=== PATIENT | female | born 1985 | race Caucasian/White ===

== ENCOUNTER 2023-04-02 06:21 | Emergency (ER) | payer BC ==
[2023-04-02 08:29] LABS: Hematocrit 40.3 % (36.0-45.0); Lymphocytes % 27.9 % (15.3-44.8); MCV 83.3 fL (80-100); MPV 8.4 fL (7.6-11.3); RBC Red Blood Cell Count 4.84 M/uL (3.86-4.86)
[2023-04-02 09:00] LABS: ALT/SGPT 31 U/L (13-56); AST/SGOT 15 U/L (15-37); Albumin 4.4 g/dL (3.4-5.0); Alkaline Phosphatase 79 U/L (45-117); BUN Blood Urea Nitrogen 9 mg/dL (7-18); Bicarbonate 26 mEq/L (21-32); Bilirubin Total 0.3 mg/dL (0.2-1.0); Glomerular Filtration Rate 98 ml/min (=/>90); Glucose Level 103 mg/dL (74-106); Lipase 51 U/L (13-75); Magnesium 1.8 mg/dL (1.6-2.4); NT PRO-BNP 15 pg/mL (<125); Potassium 3.5 mEq/L (3.5-5.1); Protein, Total 8.2 g/dL (6.4-8.2); Sodium Level 136 mEq/L (136-145); Troponin High Sensitivity 3.2 pg/mL (<58.9)
[2023-04-02 09:02] LABS: Bilirubin Direct < 0.1 mg/dL (0-0.2); Bilirubin Indirect, Calculated ND mg/dL (0.2-0.8)
--- NOTE | 2023-04-02 09:11 | RAD REPORT ---
EXAM DESCRIPTION: Lynsey Single View04/02/2023 7:55 am CLINICAL HISTORY: Abdominal pain COMPARISON: none FINDINGS: The lungs appear clear of acute infiltrate. The heart is normal size IMPRESSION: No acute abnormalities displayed
--- NOTE | 2023-04-02 09:11 | RAD REPORT ---
EXAM DESCRIPTION: CT - Abdomen Pelvis W Contrast - 04/02/2023 8:50 am CLINICAL HISTORY: Abdominal pain/GI bleed COMPARISON: none. TECHNIQUE: Computed axial tomography of the abdomen pelvis was obtained. 100 cc Isovue-300 was admin istered intravenously. Oral contrast was not requested which limits evaluation of bowel and appendix All CT scans are performed using dose optimization technique as appropriate and may include automated exposure control or mA/KV adjustment according to patient size. FINDINGS: The liver, spleen, pancreas, adrenal and kidneys appear unremarkable. There is no evidence of diverticulitis. No colitis Normal appendix. No adnexal mass. Hysterectomy Mild bladder distention IMPRESSION: No acute abnormality is displayed. Mild bladder distention
[2023-04-02 09:13] LABS: Protime INR 1.04
--- NOTE | 2023-04-02 09:52 | ER ---
Nurse's Notes [facility] Name: Melo Gonzales Age: 37 yrs Sex: Female : 1985 Arrival Date: 04/02/2023 Time: 06:21 Bed 8 Private MD: Diagnosis: Abdominal tenderness;Left sided colitis with rectal bleeding;GI Bleed/ Gastrointestinal hemorrhage, unspecified Presentation: 04/02 07:21 Chief complaint: Patient states: I've been having rectal bleeding all night, has iw pressure and bloating and cramping , has bright red blood when she goes to the bathroom , no hx of GI bleed. Coronavirus screen: At this time, the client does not indicate any symptoms associated with coronavirus-19. Ebola Screen: Patient negative for fever greater than or equal to 101.5 degrees Fahrenheit, and additional compatible Ebola Virus Disease symptoms Patient denies exposure to infectious person. Patient denies travel to an Ebola-affected area in the 21 days before illness onset. No symptoms or risks identified at this time. Initial Sepsis Screen: Does the patient meet any 2 criteria? No. Patient's initial sepsis screen is negative. Does the patient have a suspected source of infection? No. Patient's initial sepsis screen is negative. Risk Assessment: Do you want to hurt yourself or someone else? Patient reports no desire to harm self or others. Onset of symptoms was April 02, 2023. 07:21 Method Of Arrival: Ambulatory iw 07:21 Acuity: COLE 3 iw Historical: - Allergies: 07:24 No Known Allergies; iw - Home Meds: 07:24 duloxetine oral [Active]; losartan-hydrochlorothiazide 50-12.5 mg oral tablet daily iw [Active]; Buspirone Oral [Active]; Adderall XR Oral [Active]; - PMHx: 07:24 Hypertensive disorder; iw - PSHx: 07:24 Tonsillectomy; hysterectomy; iw - Immunization history:: Adult Immunizations up to date. - Social history:: Smoking status: unknown. Screenin:20 [facility] ED Fall Risk Assessment (Adult) History of falling in the last 3 months, iw including since admission. Abuse screen: Denies threats or abuse. Denies injuries from another. Nutritional screening: No deficits noted. Tuberculosis screening: No symptoms or risk factors identified. Assessment: 08:19 General: Appears in no apparent distress. Behavior is calm, cooperative. Pain: iw Complains of pain in abdomen Pain currently is 3 out of 10 on a pain scale. Neuro: Level of Consciousness is awake, alert, obeys commands, Oriented to person, place, time, situation, Moves all extremities. Full function. Cardiovascular: Patient's skin is warm and dry. Respiratory: Respiratory effort is even, unlabored, Respiratory pattern is regular, symmetrical. GI: Reports bloody stool. Derm: Skin is intact, is healthy with good turgor. 10:00 General: Appears in no apparent distress. uncomfortable, Behavior is calm, cooperative, eh3 appropriate for age. Pain: Complains of pain in abdomen. Neuro: Level of Consciousness is awake, alert, obeys commands, Oriented to person, place, time, situation. Cardiovascular: Capillary refill < 3 seconds Patient's skin is warm and dry. Respiratory: Airway is patent Respiratory effort is even, unlabored, Respiratory pattern is regular, symmetrical. GI: Abdomen is round non-distended, Reports lower abdominal pain, upper abdominal pain, bloody stool. Derm: Skin is pink, warm \T\ dry. Musculoskeletal: Circulation, motion, and sensation intact. 10:05 Reassessment: Pt receiving IV antibiotics and NS bolus before discharge. 3 11:00 Reassessment: Patient appears in no apparent distress at this time. Patient and/or 3 family updated on plan of care and expected duration. Pain level reassessed. Patient is alert, oriented x 3, equal unlabored respirations, skin warm/dry/pink. 12:00 Reassessment: Patient appears in no apparent distress at this time. Patient and/or eh3 family updated on plan of care and expected duration. Pain level reassessed. Patient is alert, oriented x 3, equal unlabored respirations, skin warm/dry/pink. IV antibiotics completed, pt prefers to finish NS bolus before leaving, 400mL remains to be infused. Vital Signs: 07:26 BP 166 / 101; Pulse 108; Resp 16; Temp 98.3; Pulse Ox 100% on R/A; Weight 90.72 kg; iw Height 5 ft. 5 in. ; Pain 3/10; 10:00 BP 151 / 95; Pulse 87; Resp 18; Pulse Ox 98% on R/A; eh3 11:00 BP 144 / 94; Pulse 96; Resp 18; Pulse Ox 98% on R/A; eh3 12:00 BP 128 / 100; Pulse 95; Resp 18; Pulse Ox 97% on R/A; eh3 07:26 Body Mass Index 33.28 (90.72 kg, 165.1 cm) iw 07:26 Pain Scale: Adult iw ED Course: 06:24 Patient arrived in ED. [id number] 07:22 Triage completed. iw 07:26 Elmer Simmons MD is Attending Physician. braeden 07:26 Arm band placed on. iw 07:57 XRAY Chest (1 view) In Process Unspecified. EDMS 08:19 Bailey Hooks, RN is Primary Nurse. iw 08:24 Initial lab(s) drawn, by me, sent to lab. EKG done, by ED staff. Inserted saline lock: tm3 22 gauge in right antecubital area, using aseptic technique. 08:52 CT Abd/Pelvis - IV Contrast Only In Process Unspecified. EDMS 09:51 Ze Osman MD is Referral Physician. braeden 10:00 Patient has correct armband on for positive identification. Bed in low position. Call 3 light in reach. Side rails up X2. Client placed on continuous cardiac and pulse oximetry monitoring. NIBP monitoring applied. Door closed. Noise minimized. Warm blanket given. Administered Medications: 08:29 CANCELLED (Duplicate Order): Piperacillin-Tazobactam IVPB 3.375 grams IVPB once over 60 braeden mins; (mix in NS 100 mL) 10:40 Drug: Ondansetron IVP 4 mg Route: IVP; Site: right antecubital; eh3 12:07 Follow up: Response: No adverse reaction eh3 10:40 Drug: Famotidine IVP 20 mg Route: IVP; Site: right antecubital; eh3 12:07 Follow up: Response: No adverse reaction eh3 10:45 Drug: NS 0.9% IV 1000 ml Route: IV; Rate: 1 bolus; Site: right antecubital; eh3 10:45 Drug: fentaNYL (PF) IVP 50 mcg Route: IVP; Site: right antecubital; eh3 12:07 Follow up: Response: No adverse reaction eh3 10:45 Drug: Ciprofloxacin IVPB 400 mg Volume: 200 ml; Route: IVPB; Infused Over: 60 mins; eh3 Site: right antecubital; 12:07 Follow up: Response: No adverse reaction; IV Status: Completed infusion; IV Intake: eh3 200ml 11:00 Drug: metroNIDAZOLE IVPB 500 mg Volume: 100 ml; Route: IVPB; Rate: 200 ml/hr; Infused eh3 Over: 30 mins; Site: right antecubital; 12:06 Follow up: Response: No adverse reaction; IV Status: Completed infusion; IV Intake: eh3 100ml Intake: 12:06 IV: 100ml; Total: 100ml. eh3 12:07 IV: 200ml; Total: 300ml. eh3 Outcome: 09:51 Discharge ordered by MD. deras 12:36 Patient left the ED. 3 Signatures: Dispatcher [employer] EDJatinder Diaz 3 Elmer Simmons MD MD cha Williams, Irene, RN RN Bren Back Erin, RN RN [facility]
--- NOTE | 2023-04-02 09:52 | EDPHYS ---
Physician Documentation [facility] Name: Melo Gonzales Age: 37 yrs Sex: Female : 1985 Arrival Date: 04/02/2023 Time: 06:21 Bed 8 Private MD: ED Physician Elmer Simmons HPI: 04/02 08:30 This 37 yrs old Female presents to ER via Ambulatory with complaints of braeden PATIENT STATES SHE IS HAVING LOWER GI BLEEDING. Historical: - Allergies: 07:24 No Known Allergies; iw - Home Meds: 07:24 duloxetine oral [Active]; losartan-hydrochlorothiazide 50-12.5 mg oral tablet daily iw [Active]; Buspirone Oral [Active]; Adderall XR Oral [Active]; - PMHx: 07:24 Hypertensive disorder; iw - PSHx: 07:24 Tonsillectomy; hysterectomy; iw - Immunization history:: Adult Immunizations up to date. - Social history:: Smoking status: unknown. ROS: 08:54 Constitutional: Negative for fever, chills, and weight loss, Eyes: Negative for injury, braeden pain, redness, and discharge, ENT: Negative for injury, pain, and discharge, Neck: Negative for injury, pain, and swelling, Cardiovascular: Negative for chest pain, palpitations, and edema, Respiratory: Negative for shortness of breath, cough, wheezing, and pleuritic chest pain, Back: Negative for injury and pain, : Negative for injury, bleeding, discharge, and swelling, MS/Extremity: Negative for injury and deformity, Skin: Negative for injury, rash, and discoloration, Neuro: Negative for headache, weakness, numbness, tingling, and seizure, Psych: Negative for depression, anxiety, suicide ideation, homicidal ideation, and hallucinations, Allergy/Immunology: Negative for hives, rash, and allergies, Endocrine: Negative for neck swelling, polydipsia, polyuria, polyphagia, and marked weight changes, Hematologic/Lymphatic: Negative for swollen nodes, abnormal bleeding, and unusual bruising. 08:54 Abdomen/GI: Positive for abdominal pain, of the left upper quadrant and left lower quadrant. Exam: 08:54 Constitutional: This is a well developed, well nourished patient who is awake, alert, braeden and in no acute distress. Head/Face: Normocephalic, atraumatic. Eyes: Pupils equal round and reactive to light, extra-ocular motions intact. Lids and lashes normal. Conjunctiva and sclera are non-icteric and not injected. Cornea within normal limits. Periorbital areas with no swelling, redness, or edema. ENT: Nares patent. No nasal discharge, no septal abnormalities noted. Tympanic membranes are normal and external auditory canals are clear. Oropharynx with no redness, swelling, or masses, exudates, or evidence of obstruction, uvula midline. Mucous membranes moist. Neck: Trachea midline, no thyromegaly or masses palpated, and no cervical lymphadenopathy. Supple, full range of motion without nuchal rigidity, or vertebral point tenderness. No Meningismus. Chest/axilla: Normal chest wall appearance and motion. Nontender with no deformity. No lesions are appreciated. Cardiovascular: Regular rate and rhythm with a normal S1 and S2. No gallops, murmurs, or rubs. Normal PMI, no JVD. No pulse deficits. Respiratory: Lungs have equal breath sounds bilaterally, clear to auscultation and percussion. No rales, rhonchi or wheezes noted. No increased work of breathing, no retractions or nasal flaring. Back: No spinal tenderness. No costovertebral tenderness. Full range of motion. Skin: Warm, dry with normal turgor. Normal color with no rashes, no lesions, and no evidence of cellulitis. MS/ Extremity: Pulses equal, no cyanosis. Neurovascular intact. Full, normal range of motion. Neuro: Awake and alert, GCS 15, oriented to person, place, time, and situation. Cranial nerves II-XII grossly intact. Motor strength 5/5 in all extremities. Sensory grossly intact. Cerebellar exam normal. Normal gait. Psych: Awake, alert, with orientation to person, place and time. Behavior, mood, and affect are within normal limits. 08:54 Abdomen/GI: Inspection: distension, Bowel sounds: active, all quadrants, Palpation: moderate abdominal tenderness, in the left upper quadrant and left lower quadrant. 09:54 ECG was reviewed by the Attending Physician. [facility] Vital Signs: 07:26 BP 166 / 101; Pulse 108; Resp 16; Temp 98.3; Pulse Ox 100% on R/A; Weight 90.72 kg; iw Height 5 ft. 5 in. ; Pain 3/10; 10:00 BP 151 / 95; Pulse 87; Resp 18; Pulse Ox 98% on R/A; eh3 11:00 BP 144 / 94; Pulse 96; Resp 18; Pulse Ox 98% on R/A; eh3 12:00 BP 128 / 100; Pulse 95; Resp 18; Pulse Ox 97% on R/A; eh3 07:26 Body Mass Index 33.28 (90.72 kg, 165.1 cm) iw 07:26 Pain Scale: Adult iw MDM: 07:27 Patient medically screened. braeden 09:51 Differential diagnosis: gastritis, bowel obstruction, Cholelithiasis, diverticulitis, braeden gastritis, GI Bleed, Mesenteric ischemia or infarction, non-specific abd pain, pancreatitis, Peptic Ulcer Disease, Ureterolithiasis, urinary tract infection. Data reviewed: vital signs, nurses notes, lab test result(s), EKG, radiologic studies, CT scan, plain films. Consideration of Admission/Observation Escalation of care including admission/observation considered. I considered the following discharge prescriptions or medication management in the emergency department Medications were administered in the Emergency Department. See MAR. Test considered but Not performed: Ultrasound NO ABD USG. Care significantly affected by the following chronic conditions: Hypertension, Obesity. Counseling: I had a detailed discussion with the patient and/or guardian regarding: the historical points, exam findings, and any diagnostic results supporting the discharge/admit diagnosis, lab results, radiology results, the need for outpatient follow up, for definitive care, a family practitioner, a corrosion control engineer. 04/02 07:28 Order name: Basic Metabolic Panel; Complete Time: 09:50 [facility] 04/02 07:28 Order name: CBC with Diff; Complete Time: 09:50 [facility] 04/02 07:28 Order name: LFT's; Complete Time: 09:50 [facility] 04/02 07:28 Order name: Magnesium; Complete Time: 09:50 [facility] 04/02 07:28 Order name: NT PRO-BNP; Complete Time: 09:50 [facility] 04/02 07:28 Order name: PT-INR; Complete Time: 09:50 [facility] 04/02 07:28 Order name: Troponin HS; Complete Time: 09:50 [facility] 04/02 07:28 Order name: Lipase; Complete Time: 09:50 [facility] 04/02 07:28 Order name: Type And Screen; Complete Time: 09:50 [facility] 04/02 09:18 Order name: ABO/RH no charge; Complete Time: 09:50 [facility] 04/02 07:28 Order name: XRAY Chest (1 view); Complete Time: 09:50 [facility] 04/02 07:28 Order name: CT Abd/Pelvis - IV Contrast Only; Complete Time: 09:50 [facility] 04/02 07:28 Order name: EKG; Complete Time: 07:29 [facility] 04/02 07:28 Order name: Cardiac monitoring; Complete Time: 10:49 [facility] 04/02 07:28 Order name: EKG - Nurse/Tech; Complete Time: 10:49 [facility] 04/02 07:28 Order name: IV Saline Lock; Complete Time: 10:49 [facility] 04/02 07:28 Order name: Labs collected and sent; Complete Time: 10:49 [facility] 04/02 07:28 Order name: O2 Per Protocol; Complete Time: 10:49 [facility] 04/02 07:28 Order name: O2 Sat Monitoring; Complete Time: 10:49 [facility] EC:54 Rate is 98 beats/min. Rhythm is regular. QRS [place] is Normal. TN interval is normal. QRS braeden interval is normal. QT interval is normal. No Q waves. T waves are Normal. No ST changes noted. Clinical impression: NSR w/ Non-specific ST/T Changes and No evidence of ischemia. Interpreted by me. Reviewed by me. Administered Medications: 08:29 CANCELLED (Duplicate Order): Piperacillin-Tazobactam IVPB 3.375 grams IVPB once over 60 braeden mins; (mix in NS 100 mL) 10:40 Drug: Ondansetron IVP 4 mg Route: IVP; Site: right antecubital; eh3 12:07 Follow up: Response: No adverse reaction eh3 10:40 Drug: Famotidine IVP 20 mg Route: IVP; Site: right antecubital; eh3 12:07 Follow up: Response: No adverse reaction eh3 10:45 Drug: NS 0.9% IV 1000 ml Route: IV; Rate: 1 bolus; Site: right antecubital; eh3 10:45 Drug: fentaNYL (PF) IVP 50 mcg Route: IVP; Site: right antecubital; eh3 12:07 Follow up: Response: No adverse reaction eh3 10:45 Drug: Ciprofloxacin IVPB 400 mg Volume: 200 ml; Route: IVPB; Infused Over: 60 mins; eh3 Site: right antecubital; 12:07 Follow up: Response: No adverse reaction; IV Status: Completed infusion; IV Intake: eh3 200ml 11:00 Drug: metroNIDAZOLE IVPB 500 mg Volume: 100 ml; Route: IVPB; Rate: 200 ml/hr; Infused eh3 Over: 30 mins; Site: right antecubital; 12:06 Follow up: Response: No adverse reaction; IV Status: Completed infusion; IV Intake: eh3 100ml Disposition Summary: 04/02/23 09:51 Discharge Ordered Location: Home [facility] Problem: new braeden Symptoms: have improved braeden Condition: Stable braeden Diagnosis - Abdominal tenderness braeden - Left sided colitis with rectal bleeding braeden - GI Bleed/ Gastrointestinal hemorrhage, unspecified braeden Followup: braeden - With: Private Physician - When: 2 - 3 days - Reason: Recheck today's complaints, Continuance of care, Re-evaluation by your physician Followup: braeden - With: - When: 2 - 3 days - Reason: Recheck today's complaints, Re-evaluation by your physician Discharge Instructions: - Discharge Summary Sheet braeden - Abdominal Pain, Adult braeden - Gastrointestinal Bleeding braeden - Rectal Bleeding braeden - Abdominal Pain, Adult, [id number] braeden - Rectal Bleeding, [id number] braeden - Colitis braeden - Lower Gastrointestinal Bleeding braeden Forms: - Medication Reconciliation Form braeden - Thank You Letter braeden - Antibiotic Education braeden - Prescription Opioid Use braeden - Work release form iw Prescriptions: - Flagyl 500 mg Oral Tablet - take 1 tablet by ORAL route every 6 hours for 10 days; 40 tablet; Refills: 0, [facility] Product Selection Permitted - Pepcid 20 mg Oral Tablet - take 1 tablet by ORAL route every 12 hours for 21 days; 42 tablet; Refills: 0, [facility] Product Selection Permitted - Zofran 4 mg Oral Tablet - take 1 tablet by ORAL route every 12 hours As needed; 20 tablet; Refills: 0, [facility] Product Selection Permitted - Cipro 500 mg Oral Tablet - take 1 tablet by ORAL route every 12 hours for 10 days; 20 tablet; Refills: 0, [facility] Product Selection Permitted - dicyclomine 20 mg Oral Tablet - take 1 tablet by ORAL route 4 times per day; 28 tablet; Refills: 0, Product [facility] Selection Permitted Signatures: Dispatcher [employer] Elmer Brooks MD MD cha Williams, Irene, KIRT MORALEZ iw Angela Gilbert RN RN eh3 Corrections: (The following items were deleted from the chart) 08:29 07:28 Piperacillin-Tazobactam IVPB 3.375 grams IVPB once over 60 mins; (mix in NS 100 braeden mL) ordered. braeden
[2023-04-02] MEDS ORDERED: METRONIDAZOLE 500mg IVPB 500 MG/100 ML BAG IV ONE (10:43)
[2023-04-02] MEDS ORDERED: FAMOTIDINE 20 MG/2 ML VIAL IV ONE (10:43)
[2023-04-02] MEDS ORDERED: FENTANYL CITR 100 MCG/2 ML ONE (10:43)
[2023-04-02] MEDS ORDERED: ONDANSETRON 4 MG/2 ML VIAL ONE (10:43)
[2023-04-02] MEDS ORDERED: NA CHLORIDE 0.9% 1,000 ML ONE (10:43)
[2023-04-02] MEDS ORDERED: CIPROFLOXACIN 400mg IV 400 MG/200 ML BAG IV ONE (10:43)
[2023-04-02 12:56] VITALS: TEMP 98.3
[2023-04-02 13:04] VITALS: BP 128/100; O2SAT 97
--- NOTE | 2023-04-04 17:16 | EKG ---
Test Date: 2023-04-02 Test Time: 08:32:05 Facial Operator: TM MEASUREMENT RESULTS: Intervals: Rate: 98 LA: 174 QRSD: 80 QT: 366 QTc: 467 [place]: P: 45 LA: 174 QRS: 56 T: 26 INTERPRETIVE STATEMENTS: Normal sinus rhythm Septal infarct, age undetermined Abnormal ECG No previous ECG available for comparison Electronically Signed On 04-04-23 17:11:48 CDT by Tommie Fairbanks
== END 2023-04-02 12:36 | disposition home or self-care (01) ==
LOC: ER 06:21
DX: K51.511 Left sided colitis with rectal bleeding (principal); I10 Essential (primary) hypertension
CPT/HCPCS: 96365; 93005; 85025; 80048; 36415; 86900; 83735; 86850; 85610; 86901; 80076; 84484; 83690; 83880; 74177; 71045; 96375; 99284; Q9967; J3010; J2405; J0744; J7030